=== PATIENT | male | born 1960 | race Caucasian/White ===

== ENCOUNTER 2022-05-02 08:33 | Day surgery (SDC) | payer MEDICAID ==
[~2022-05-02] VITALS: Ht 173.4 cm; Wt 81.8 kg
[~2022-05-02 08:33] MED LIST: ASPI-611 PO; GLUCOSAMINE PO; OMEG-86 PO
[2022-05-02 08:40] VITALS: BP 158/100
[2022-05-02] MEDS ORDERED: fentaNYL/PF 50MCG/1 ML 2ML syringe ONE (08:42)
[2022-05-02] MEDS ORDERED: MIDAZolam 1 MG/ML 5ML VIAL ONE (08:42)
[2022-05-02] MEDS ORDERED: ALLO100T15 PO (08:45)
[2022-05-02] MEDS ORDERED: CETI-90 PO (08:46)
[2022-05-02 11:05] VITALS: BP 134/70
[2022-05-02 11:15] VITALS: BP 127/81
[2022-05-02 11:25] VITALS: BP 114/78
[2022-05-02 11:35] VITALS: BP 124/81
== END 2022-05-02 11:40 | disposition home or self-care (01) ==
LOC: GI LAB 08:33
PROVIDERS: ATTEND Internal Medicine Gastroenterology
DX: Z08 Encounter for follow-up examination after completed treatment for malignant neoplasm (principal); D12.2 Benign neoplasm of ascending colon; D12.3 Benign neoplasm of transverse colon; Z86.010 Personal history of colon polyps; K57.30 Diverticulosis of large intestine without perforation or abscess without bleeding; K64.8 Other hemorrhoids; Z79.899 Other long term (current) drug therapy; Z98.890 Other specified postprocedural states
CPT/HCPCS: 45380; 45385; 99152; C1773; J2250; J3010; J7030; Z7512; 99153; A4620; C1889